=== PATIENT | female | born 1955 | race Two or more races ===

== ENCOUNTER 2019-12-28 09:31 | Emergency (ER) | payer MEDICARE, MEDICAID ==
[~2019-12-28] VITALS: Ht 157.5 cm; Wt 74.8 kg
[2019-12-28 09:43] VITALS: BP 109/80
[2019-12-28] MEDS ORDERED: traMADol HCL 50 MG TAB PO ONE (10:45)
== END 2019-12-28 11:00 | disposition home or self-care (01) ==
LOC: ER 09:31
DX: S52.572A Other intraarticular fracture of lower end of left radius, initial encounter for closed fracture (principal); J44.9 Chronic obstructive pulmonary disease, unspecified; F17.210 Nicotine dependence, cigarettes, uncomplicated; X58.XXXA Exposure to other specified factors, initial encounter; Y93.89 Activity, other specified; Y92.89 Other specified places as the place of occurrence of the external cause; Y99.8 Other external cause status
CPT/HCPCS: 29125; 73110

== ENCOUNTER 2020-01-15 17:22 | Emergency (ER) | payer MEDICARE, MEDICAID ==
[~2020-01-15] VITALS: Ht 157.5 cm; Wt 74.8 kg
[2020-01-15 17:42] VITALS: BP 131/69
== END 2020-01-15 19:05 | disposition home or self-care (01) ==
LOC: ER 17:22
DX: N76.0 Acute vaginitis (principal); N39.0 Urinary tract infection, site not specified; J44.9 Chronic obstructive pulmonary disease, unspecified; F17.210 Nicotine dependence, cigarettes, uncomplicated; Z76.0 Encounter for issue of repeat prescription; Z88.0 Allergy status to penicillin; Z91.048 Other nonmedicinal substance allergy status; Z88.8 Allergy status to other drugs, medicaments and biological substances
CPT/HCPCS: 81002